=== PATIENT | female | born 1985 | race Caucasian/White ===

== ENCOUNTER 2021-07-01 17:22 | Emergency (ER) | payer OTHER ==
[~2021-07-01] VITALS: Ht 157.5 cm; Wt 59.0 kg
[2021-07-01 17:29] VITALS: BP 111/55
--- NOTE | 2021-07-01 17:59 | NUR ---
35 Y/O F C/O CHRONIC BACK PAIN X1 YEAR. 11/17 PAIN MEDHX: DENIES ALLERGY: REGLAN
--- NOTE | 2021-07-01 18:49 | NUR ---
MADHAV GONZALEZ EXAMINING PT
[2021-07-01] MEDS ORDERED: CYCLOBENZAPRINE 10 MG TAB PO ONE (18:55)
[2021-07-01] MEDS ORDERED: KETOROLAC 30 MG/ML VIAL IM ONE (18:55)
[2021-07-01] MEDS ORDERED: NAPR-54 PO (19:28)
[2021-07-01] MEDS ORDERED: CYCL-711 PO (19:28)
[2021-07-01 19:55] VITALS: BP 122/76
--- NOTE | 2021-07-01 19:55 | NUR ---
Patient discharged with v/s stable. Written and verbal after care instructions given and explained. Patient alert, oriented and verbalized understanding of instructions. Ambulatory with steady gait. All questions addressed prior to discharge. ID band removed. Patient advised to follow up with PMD. Rx of NAPROSYN, FLEXERIL given. Patient educated on indication of medication including possible reaction and side effects. Opportunity to ask questions provided and answered.
== END 2021-07-01 19:55 | disposition home or self-care (01) ==
LOC: MED 17:22
DX: M54.30 Sciatica, unspecified side (principal)
CPT/HCPCS: 81002; 81025; 96372; 99283; J1885

== ENCOUNTER 2021-10-14 13:53 | Emergency (ER) | payer OTHER ==
[~2021-10-14] VITALS: Ht 160 cm; Wt 80.3 kg
[~2021-10-14 13:53] MED LIST: CYCL-711 PO; NAPR-54 PO
[2021-10-14 13:57] VITALS: BP 136/89
--- NOTE | 2021-10-14 14:11 | NUR ---
PATIENT AMBULATED TO BED 4
--- NOTE | 2021-10-14 14:11 | NUR ---
PA JOHNSON AT BEDSIDE EVALUATING PATIENT.
[2021-10-14] MEDS ORDERED: HYDROcodone/APAP 5/325 MG 1 TAB TAB PO ONE (14:20)
[2021-10-14] MEDS ORDERED: AMPICILLIN/SULBACTAM 1.5 GM VIAL IM ONE (14:20)
[2021-10-14] MEDS ORDERED: WATER STERILE 10 ML VIAL MC ONE (14:40)
[2021-10-14] MEDS ORDERED: AMPICILLIN/SULBACTAM 1.5 GM in NACL 0.9% 50 ML IV ONE (14:45)
--- NOTE | 2021-10-14 14:55 | NUR ---
35 Y/O FEMALE BIB SELF WITH C/O LEFT SIDE OF FACE/CHEEK SWELLING FROM TOOTHACHE. PATIENT STATES PAIN STARTED YESTERDAY. 6/10 PAIN LEVEL. PATIENT HAS SWELLING TO LEFT SIDE OF FACE. DENIES SOB. MEDICAL HISTORY: DENIES ALLERGY: METOCLOPRAMIDE
[2021-10-14] MEDS ORDERED: IBUP-2213 PO (15:12)
[2021-10-14] MEDS ORDERED: ACET-8386 PO (15:12)
[2021-10-14] MEDS ORDERED: AMOX1TAB8 PO (15:12)
[2021-10-14] MEDS ORDERED: CHLO473S62 PO (15:19)
--- NOTE | 2021-10-14 15:56 | NUR ---
Patient discharged with v/s stable. Written and verbal after care instructions given. Patient alert, oriented and verbalized understanding of instructions. Ambulatory with steady gait. All questions addressed prior to discharge. ID band removed. Patient advised to follow up with PMD. Rx of HYDROCODONE/ACEMATINOPHEN, IBUPROFEN AND AMOX-CLAV 875-125 MG TABLET given. Opportunity to ask questions provided and answered.
--- NOTE | 2021-10-14 15:57 | NUR ---
Chart checked and completed. The patient's care was reviewed and supervised by Dipika Arguello RN.
== END 2021-10-14 15:56 | disposition home or self-care (01) ==
LOC: MED 13:53
DX: R68.84 Jaw pain (principal); R51.9 Headache, unspecified; Z79.84 Long term (current) use of oral hypoglycemic drugs
CPT/HCPCS: 96365; 99284; J0295; 99283

== ENCOUNTER 2022-03-12 02:49 | Emergency (ER) | payer OTHER ==
[~2022-03-12] VITALS: Ht 157.5 cm; Wt 67.1 kg
[~2022-03-12 02:49] MED LIST changes: +ACET-8386 PO; +AMOX1TAB8 PO; +CHLO473S62 PO; +IBUP-2213 PO
[2022-03-12 02:50] VITALS: BP 142/78
--- NOTE | 2022-03-12 02:52 | NUR ---
PATIENT TO BED 3 VIA [facility]
--- NOTE | 2022-03-12 02:52 | NUR ---
PT BIBA BLS ER BED 3
--- NOTE | 2022-03-12 03:15 | NUR ---
DR WEBER AT BEDSIDE EXAMINING PT
[2022-03-12] MEDS ORDERED: KETOROLAC 15 MG/ML VIAL IVP ONE (03:25)
[2022-03-12] MEDS ORDERED: NACL 0.9% 1,000 ML IV ONE (03:25)
[2022-03-12] MEDS ORDERED: PANTOPRAZOLE 40 MG INJ VIAL IVP ONE (03:25)
[2022-03-12 03:40] LABS: BASOPHILS % (AUTO) 0.5 % (0.0-2.0); EOSINOPHILS # (AUTO) 0.1 K/uL (0-0.4); EOSINOPHILS % (AUTO) 1.2 % (0.0-4.0); HEMATOCRIT 32.6 % (36-48); HEMOGLOBIN 10.8 g/dL (12.0-16.0); LYMPHOCYTES # (AUTO) 1.6 K/uL (2.5-16.5); LYMPHOCYTES % (AUTO) 26.6 % (20.5-51.1); MEAN CORPUSCULAR HEMOGLOBIN 27 pg (27-31); MEAN CORPUSCULAR HGB CONC 33 g/dL (33-37); MEAN CORPUSCULAR VOLUME 82.5 fL (80-94); MONOCYTES # (AUTO) 0.5 K/uL (0.8-1.0); MONOCYTES % (AUTO) 9.2 % (1.7-9.3); NEUTROPHILS # (AUTO) 3.7 K/uL (1.8-7.7); NEUTROPHILS % (AUTO) 62.5 % (42.2-75.2); PLATELET COUNT (AUTO) 215 K/uL (140-450); RED BLOOD CELL COUNT(AUTO) 3.95 MIL/uL (4.20-5.40); RED CELL DISTRIBUTION WIDTH 15.8 % (11.6-13.7); WHITE BLOOD COUNT (AUTO) 5.9 K/uL (4.8-10.8)
--- NOTE | 2022-03-12 03:44 | NUR ---
PATIENT ALERT VITALS SIGNS IN NORMAL LIMITS WE GAVE TORADOL 15 MG FOR EPIGASTRIC PAIN
[2022-03-12 03:58] LABS: ALBUMIN 2.9 g/dL (3.4-5.0); ANION GAP 8.4 (8-16); CARBON DIOXIDE 31.1 mmol/L (21-32); CREATININE 0.7 mg/dL (0.6-1.3); POTASSIUM 3.5 mmol/L (3.5-5.1); TOTAL BILIRUBIN 0.3 mg/dL (0.0-1.0)
--- NOTE | 2022-03-12 04:21 | NUR ---
PATIENT SLEEPING AT THIS TIME NOT COMPLAINING OF PAIN STABLE
[2022-03-12] MEDS ORDERED: ONDA-188 PO (05:14)
[2022-03-12] MEDS ORDERED: IBUP-2213 PO (05:14)
[2022-03-12] MEDS ORDERED: PANT40EC PO (05:15)
[2022-03-12 05:57] VITALS: BP 122/64
--- NOTE | 2022-03-12 05:59 | NUR ---
PATIENT DC HOME STABLE NOT COMPLAINING OF PAIN VITALS SIGNS IN NORMAL LIMITS ALL DC INSTRUCTION GAVE AND EXPLAINED
--- NOTE | 2022-03-13 08:50 | NUR ---
LATE ENTRY-IVF/IVP MEDS
== END 2022-03-12 05:59 | disposition home or self-care (01) ==
LOC: MED 02:49
DX: K80.50 Calculus of bile duct without cholangitis or cholecystitis without obstruction (principal)
CPT/HCPCS: 36415; 76705; 80053; 83690; 85025; 96361; 96374; 96375; 99284; C9113; J1885; Q0092; J7030

== ENCOUNTER 2024-02-28 15:47 | Emergency (ER) | payer OTHER ==
[~2024-02-28] VITALS: Ht 157.5 cm; Wt 65.8 kg
[~2024-02-28 15:47] MED LIST changes: -ACET-8386 PO; +ACET-8905 PO; +NAPR-337 PO; -NAPR-54 PO; +ONDA-188 PO; +PANT40EC PO
[2024-02-28 16:24] VITALS: BP 116/78; PULSE 72; RESP 16; TEMP 98; O2SAT 99
[2024-02-28 17:35] LABS: BILIRUBIN,URINE NEGATIVE (NEGATIVE); BLOOD, URINE NEGATIVE (NEGATIVE); COLOR,URINE YELLOW (YELLOW); LEUKOCYTE ESTERASE ,URINE TRACE (NEGATIVE); NITRITE, URINE NEGATIVE (NEGATIVE); PROTEIN,URINE NEGATIVE (NEGATIVE); UGLUCOSE NEGATIVE (NEGATIVE); UROBILINOGEN,URINE 0.2 EU/dL (0.2 - 1)
[2024-02-28] MEDS: KETOROLAC 30 MG/ML VIAL IM ONE (17:35)
[2024-02-28 17:38] LABS: APPEARANCE,URINE SLIGHTLY HAZY (CLEAR)
[2024-02-28 17:59] LABS: BACTERIA,URINE 1+ /HPF (None Seen); MUCUS,URINE None Seen /LPF (None Seen); RBC,URINE 0 /HPF (0-5); SQUAMOUS EPITHELIAL CELL,UR 4-10 (MOD) /LPF (0-3 (FEW)); WBC,URINE 0-5 /HPF (0-5)
[2024-02-28] MEDS ORDERED: NAPR-1704 PO (18:47)
[2024-02-28] MEDS ORDERED: CYCL-711 PO (18:47)
[2024-02-28] MEDS ORDERED: METH1ADH21 TP (18:47)
[2024-02-28 18:53] VITALS: BP 121/72; PULSE 88; RESP 16; TEMP 98; O2SAT 99
== END 2024-02-28 18:53 | disposition home or self-care (01) ==
LOC: MED 15:47
DX: M54.50 Low back pain, unspecified (principal); Z79.899 Other long term (current) drug therapy; Z88.8 Allergy status to other drugs, medicaments and biological substances
CPT/HCPCS: 81001; 81025; 96372; 99283; J1885